=== PATIENT | female | born 1950 | race Caucasian/White ===

== ENCOUNTER 2017-02-02 06:22 | Day surgery (SDC) | payer OTHER ==
[~2017-02-02] VITALS: Ht 154.9 cm; Wt 73.2 kg
[~2017-02-02 06:22] MED LIST: SODIUM CHLORIDE 0.9% 1,000 ML IV ONE
[2017-02-02] MEDS ORDERED: BENA20 PO (06:53)
[2017-02-02] MEDS ORDERED: AMLO-512 PO (06:53)
[2017-02-02] MEDS ORDERED: ASPI-1182 PO (06:53)
[2017-02-02] MEDS ORDERED: VITAD1000 PO (06:53)
[2017-02-02] MEDS ORDERED: METF500T4 PO ×2 (06:53)
[2017-02-02] MEDS ORDERED: SODIUM CHLORIDE 0.9% 1,000 ML IV ONE (07:00)
[2017-02-02] MEDS ORDERED: BENZOCAINE 20% 50 MCG/SPRAY 57 GM ONE (07:57)
[2017-02-02] MEDS ORDERED: FentaNYL CITRATE-PF 100 MCG/2 ML VIAL ONE (07:57)
[2017-02-02] MEDS ORDERED: MIDAZOLAM HCL 2 MG/2 ML VIAL ONE (07:57)
[2017-02-02 08:00] VITALS: BP 159/79
[2017-02-02 08:26] LABS: POTASSIUM 3.7 mmol/L (3.5-5.1); SODIUM SERUM 143 mmol/L (136-145)
[2017-02-02 08:27] VITALS: BP 160/82
[2017-02-02 08:27] LABS: ANION GAP 7 mmol/L (8-16); CALCIUM, TOTAL 9.4 mg/dL (8.8-10.5); CARBON DIOXIDE 30 mmol/L (22-29); CHLORIDE 106 mmol/L (98-107); CREATININE 0.71 mg/dL (0.60-1.30); GLOMERULAR FILTR. RATE CALC > 60 mL/min (>60); UREA NITROGEN, BLOOD 11 mg/dL (7-18)
[2017-02-02 10:03] LABS: GLUCOSE,POINT OF CARE 169 MG/DL (70-110)
[2017-02-02 10:28] LABS: PROTHROMBIN TIME 10.3 SEC (9.4-11.6)
[2017-02-02 10:46] LABS: BASOPHILS # (AUTO) 0.07 K/uL (0.00-0.20); BASOPHILS % (AUTO) 1.2 % (0.0-2.0); EOSINOPHILS # (AUTO) 0.15 K/uL (0.00-0.70); EOSINOPHILS % (AUTO) 2.74 % (1.0-6.0); HEMATOCRIT 39.3 % (36-46); HEMOGLOBIN 13.5 g/dL (12.0-16.0); LYMPHOCYTES # (AUTO) 1.9 K/uL (1.0-4.8); LYMPHOCYTES % (AUTO) 35.5 % (22.0-44.0); MEAN CORPUSCULAR HEMOGLOBIN 29.4 pg (26.0-34.0); MEAN CORPUSCULAR HGB CONC 34.3 G/dL (31.0-37.0); MEAN CORPUSCULAR VOLUME 86 fL (80-100); MONOCYTES # (AUTO) 0.3 K/uL (0.1-1.0); MONOCYTES % (AUTO) 6.4 % (2.0-9.0); NEUTROPHILS # (AUTO) 2.9 K/uL (1.8-7.7); NEUTROPHILS % (AUTO) 54.2 % (40.0-70.0); PLATELET COUNT (AUTO) 266 K/uL (150-450); RED BLOOD CELL COUNT(AUTO) 4.58 MIL/uL (4.00-5.20); RED CELL DISTRIBUTION WIDTH 12.9 % (11.5-14.5); WHITE BLOOD COUNT (AUTO) 5.3 K/uL (4.5-11.0)
== END 2017-02-02 10:40 | disposition home or self-care (01) ==
LOC: CATHLAB 06:22
PROVIDERS: ATTEND Internal Medicine Cardiovascular Disease
DX: R94.31 Abnormal electrocardiogram [ECG] [EKG] (principal); E11.9 Type 2 diabetes mellitus without complications; F17.200 Nicotine dependence, unspecified, uncomplicated; Z79.82 Long term (current) use of aspirin; Z90.49 Acquired absence of other specified parts of digestive tract; Z98.890 Other specified postprocedural states; Z79.01 Long term (current) use of anticoagulants
CPT/HCPCS: 36415; 80048; 82962; 85025; 85610; 85730; 93005; 93312; 93325; 99152; J2250; J3010; J7030; 93308